=== PATIENT | female | born 1965 | race Caucasian/White ===

== ENCOUNTER 2020-01-12 06:29 | Inpatient (IN) | payer BC, OTHER ==
[~2020-01-12] VITALS: Ht 165.1 cm; Wt 96.9 kg
[2020-01-12] MEDS ORDERED: CEFTRIAXONE PMX 1GM/50ML 50 ML IV ONE (07:30)
[2020-01-12] MEDS ORDERED: AZITHROMYCIN 500 MG in SODIUM CHLORIDE 0.9% 250 ML IV ONE (07:30)
--- NOTE | 2020-01-12 07:34 | NUR ---
PT C/O MULTIPLE SYMTPOMS INCLUDING COUGH, FEVERS, N/V/D, MARQUES WITH RECENT EXPOSURE TO COVID. PT REPORTS CP WITH COUGHING AMD SORE RIBS FROM COUGHING. PT ON MONITOR. LAB AT BEDSIDE.
[2020-01-12] MEDS ORDERED: CEFTRIAXONE PMX 1GM/50ML 50 ML ONE (07:38)
[2020-01-12] MEDS ORDERED: ACETAMINOPHEN 500 MG TABLET ONE (07:38)
--- NOTE | 2020-01-12 07:51 | NUR ---
ANTIBIOTICS STARTED AFTER BLOOD CULTURES X 2 WERE DRAWN.
[2020-01-12 08:00] LABS: BASOPHILS % (AUTO) 0 % (0-1); EOSINOPHILS % (AUTO) 0 % (1-7); LYMPHOCYTES % (AUTO) 9 % (22-44); MEAN CORPUSCULAR HEMOGLOBIN 30.3 pg (27.0-34.8); MEAN CORPUSCULAR HGB CONC 34.5 g/dL (32.4-35.8); MEAN PLATELET VOLUME 8.6 fL (7.4-10.4); MONOCYTES % (AUTO) 4 % (2-9); NEUTROPHILS % (AUTO) 87 % (42-75); PLATELET COUNT 175 x10^3/uL (130-400); RED BLOOD COUNT 5.07 x10^6/uL (3.82-5.3); RED CELL DISTRIBUTION WIDTH 13.3 % (9.6-15.2)
[2020-01-12] MEDS ORDERED: ACETAMINOPHEN 500 MG TABLET PO/NG ONE (08:00)
[2020-01-12] MEDS ORDERED: ACETAMINOPHEN 325 MG TABLET PO/NG ONE (08:00)
[2020-01-12 08:06] LABS: ALANINE AMINOTRANSFERASE 25 U/L (12-78); ALBUMIN 2.9 g/dL (3.4-5.0); ANION GAP 7 mmol/L (5-15); CALCIUM 8.9 mg/dL (8.5-10.1); CHLORIDE 100 mmol/L (98-107); CREATININE 0.69 mg/dL (0.55-1.02)
[2020-01-12 08:08] LABS: ALKALINE PHOSPHATASE 55 U/L (45-117); BILIRUBIN,TOTAL 0.3 mg/dL (0.2-1.0); MD NO; TOTAL PROTEIN 7.9 g/dL (6.4-8.2)
--- NOTE | 2020-01-12 08:27 | NUR ---
PT PLACED ON 1 LITER OF OXYGEN NC AFTER PT WAS CONSISTENTLY AT 88% ON RA.
[2020-01-12] MEDS ORDERED: LISINOPRIL PO (08:29)
--- NOTE | 2020-01-12 09:01 | NUR ---
Report to Leila Shultz RN
--- NOTE | 2020-01-12 09:04 | NUR ---
REPORT FROM JAVIER, ASSUME CARE OF PT AT THIS TIME.
--- NOTE | 2020-01-12 09:17 | NUR ---
PT TO CTA
[2020-01-12] MEDS ORDERED: OMNIPAQUE 350 MG/ML, 100ML BOTTLE ONE (09:42)
--- NOTE | 2020-01-12 10:09 | NUR ---
CTA RESULTS BACK, PT TO BE ADMITTED TO HOSPITAL.
[2020-01-12] MEDS ORDERED: DEXAMETHASONE 4 MG/ML, 1ML IVPush ONE (10:30)
--- NOTE | 2020-01-12 10:40 | NUR ---
PT TO BE ADMITTED TO COVID MONITORED ROOM. HOSPITAL BED ORDERED.
--- NOTE | 2020-01-12 11:47 | NUR ---
PT MOVED ONTO HOSPITAL BED. PT C/O BEING HUNGRY, MEAL TRAY ORDERED.
--- NOTE | 2020-01-12 12:38 | NUR ---
MEAL TRAY PROVIDED, CALL LIGHT WITHIN REACH.
[2020-01-12] MEDS ORDERED: ENOXAPARIN 40 MG/0.4 ML SQ SCH (14:30)
[2020-01-12] MEDS ORDERED: ONDANSETRON ODT 4 MG PO PRN (14:30)
[2020-01-12] MEDS ORDERED: ONDANSETRON 2MG/ML, 2ML ONE (15:43)
[2020-01-12] MEDS ORDERED: ASCORBIC ACID 500 MG TABLET ONE (15:43)
[2020-01-12] MEDS ORDERED: ENOXAPARIN 40 MG/0.4 ML ONE (15:43)
[2020-01-12] MEDS: ONDANSETRON 2MG/ML, 2ML IVPush PRN (15:48)
[2020-01-12] MEDS: ASCORBIC ACID 500 MG TABLET PO SCH (15:48)
--- NOTE | 2020-01-12 16:00 | NUR ---
PT C/O NAUSEA, MEDICATED PER EMAR FOR NAUSEA. LAB IN TO DRAW.
--- NOTE | 2020-01-12 17:00 | NUR ---
MEAL TRAY PROVIDED, CALL LIGHT WITHIN REACH.
[2020-01-12] MEDS: SODIUM CHLORIDE 0.9% 1,000 ML IV SCH (17:05)
[2020-01-12] MEDS ORDERED: PROMETHAZINE 25MG TABLET ONE (17:09)
[2020-01-12] MEDS ORDERED: PROMETHAZINE 25MG TABLET PO PRN (18:00)
--- NOTE | 2020-01-12 18:00 | NUR ---
PT MOVED TO ROOM 36. VSS/UPDATED IN COMPUTER. BSC IN ROOM. PT C/O BURNING WITH URINATION AND FOUL ODOR. UA ORDER PLACED PER PROTOCOL, URINE COLLECTED/SENT TO LAB.
[2020-01-12 18:56] LABS: MICROSCOPIC INDICATED
--- NOTE | 2020-01-12 19:20 | NUR ---
REPORT TO TAVIA, TRANSFER OF CARE AT THIS TIME.
--- NOTE | 2020-01-12 19:24 | NUR ---
report from cosme hernandez
[2020-01-12] MEDS ORDERED: ACETAMINOPHEN 325 MG TABLET ONE (20:23)
[2020-01-12] MEDS: ACETAMINOPHEN 325 MG TABLET PO PRN (20:24)
--- NOTE | 2020-01-12 20:25 | NUR ---
PT WITH FEVER. MEDICATED WITH PRN TYLENOL
--- NOTE | 2020-01-12 21:13 | NUR ---
report to SHAUN batres
[2020-01-13 01:12] VITALS: BP 132/78
[2020-01-13] MEDS: SODIUM CHLORIDE 0.9% 1,000 ML IV SCH (05:27)
[2020-01-13] MEDS: ACETAMINOPHEN 325 MG TABLET PO PRN ×2 (05:27→17:49)
[2020-01-13 06:45] LABS: ALBUMIN 2.4 g/dL (3.4-5.0); ANION GAP 7 mmol/L (5-15); BASOPHILS % (AUTO) 0 % (0-1); CALCIUM 8.6 mg/dL (8.5-10.1); CHLORIDE 102 mmol/L (98-107); EOSINOPHILS % (AUTO) 0 % (1-7); LYMPHOCYTES % (AUTO) 17 % (22-44); MEAN CORPUSCULAR HEMOGLOBIN 30.2 pg (27.0-34.8); MEAN CORPUSCULAR HGB CONC 34.3 g/dL (32.4-35.8); MEAN PLATELET VOLUME 8.6 fL (7.4-10.4); MONOCYTES % (AUTO) 7 % (2-9); NEUTROPHILS % (AUTO) 76 % (42-75); PLATELET COUNT 169 x10^3/uL (130-400); RED BLOOD COUNT 4.56 x10^6/uL (3.82-5.3); RED CELL DISTRIBUTION WIDTH 13.4 % (9.6-15.2)
[2020-01-13 06:56] LABS: MD NO
[2020-01-13 06:57] LABS: ALANINE AMINOTRANSFERASE 27 U/L (12-78); ALKALINE PHOSPHATASE 54 U/L (45-117); BILIRUBIN,TOTAL 0.3 mg/dL (0.2-1.0); CREATININE 0.71 mg/dL (0.55-1.02); TOTAL PROTEIN 7.2 g/dL (6.4-8.2)
[2020-01-13 09:10] VITALS: BP 115/76
[2020-01-13] MEDS: DEXAMETHASONE 4 MG/ML, 1ML IVPush SCH (09:19)
[2020-01-13] MEDS: CHOLECALCIFEROL 5,000u TAB PO SCH (09:19)
[2020-01-13] MEDS: THIAMINE 100MG TABLET PO SCH (09:19)
[2020-01-13] MEDS: ZINC SULFATE 220 MG CAPSULE PO SCH (09:19)
[2020-01-13] MEDS: ASCORBIC ACID 500 MG TABLET PO SCH ×2 (09:19→17:24)
[2020-01-13] MEDS ORDERED: LEVO200T PO (09:51)
[2020-01-13] MEDS ORDERED: PROG100C10 PO (09:51)
[2020-01-13] MEDS ORDERED: LISI1TAB23 PO (09:51)
[2020-01-13] MEDS ORDERED: BUPR200T31 PO (09:51)
[2020-01-13] MEDS: CEFTRIAXONE PMX 1GM/50ML 50 ML IV SCH (10:07)
[2020-01-13] MEDS ORDERED: ESTR0.45 PO (10:13)
[2020-01-13] MEDS: AZITHROMYCIN 500 MG in SODIUM CHLORIDE 0.9% 250 ML IV SCH (10:52)
[2020-01-13] MEDS: ENOXAPARIN 100 MG/ML SQ SCH (12:30)
[2020-01-13] MEDS: LISINOPRIL 10 MG TABLET PO SCH (12:34)
[2020-01-13] MEDS: HYDROCHLOROTHIAZIDE 12.5 MG CAPSULE PO SCH (12:34)
[2020-01-13 13:50] VITALS: BP 112/59
[2020-01-13 19:32] VITALS: BP 134/74
[2020-01-14 00:47] VITALS: BP 120/72
[2020-01-14] MEDS: ACETAMINOPHEN 325 MG TABLET PO PRN ×3 (00:59→15:59)
[2020-01-14] MEDS: ENOXAPARIN 100 MG/ML SQ SCH ×2 (01:01→11:35)
[2020-01-14] MEDS ORDERED: LEVOTHYROXINE 100 MCG TABLET ONE (05:45)
[2020-01-14] MEDS: LEVOTHYROXINE 200 MCG TABLET PO SCH (05:50)
[2020-01-14 07:02] VITALS: BP 121/68
[2020-01-14] MEDS: ASCORBIC ACID 500 MG TABLET PO SCH ×2 (09:13→15:59)
[2020-01-14] MEDS: ZINC SULFATE 220 MG CAPSULE PO SCH (09:13)
[2020-01-14] MEDS: DEXAMETHASONE 4 MG/ML, 1ML IVPush SCH (09:13)
[2020-01-14] MEDS: AZITHROMYCIN 500 MG in SODIUM CHLORIDE 0.9% 250 ML IV SCH (09:13)
[2020-01-14] MEDS: THIAMINE 100MG TABLET PO SCH (09:13)
[2020-01-14] MEDS: CHOLECALCIFEROL 5,000u TAB PO SCH (09:13)
[2020-01-14] MEDS: LISINOPRIL 10 MG TABLET PO SCH (09:13)
[2020-01-14] MEDS: CEFTRIAXONE PMX 1GM/50ML 50 ML IV SCH (09:14)
[2020-01-14] MEDS: HYDROCHLOROTHIAZIDE 12.5 MG CAPSULE PO SCH (09:15)
[2020-01-14] MEDS: ONDANSETRON 2MG/ML, 2ML IVPush PRN (17:24)
[2020-01-14] MEDS ORDERED: OXYcodone 5 MG/5 ML ORAL.SOL UDC PO ONE (17:30)
[2020-01-14 21:16] VITALS: BP 125/73
[2020-01-15 00:42] VITALS: BP 120/82
[2020-01-15] MEDS: LEVOTHYROXINE 200 MCG TABLET PO SCH (06:05)
[2020-01-15] MEDS: ACETAMINOPHEN 325 MG TABLET PO PRN ×2 (06:07→13:22)
[2020-01-15 07:41] VITALS: BP 134/80
[2020-01-15 08:01] LABS: BASOPHILS % (AUTO) 0 % (0-1); EOSINOPHILS % (AUTO) 0 % (1-7); LYMPHOCYTES % (AUTO) 40 % (22-44); MEAN CORPUSCULAR HEMOGLOBIN 29.7 pg (27.0-34.8); MEAN CORPUSCULAR HGB CONC 33.7 g/dL (32.4-35.8); MEAN PLATELET VOLUME 8.1 fL (7.4-10.4); MONOCYTES % (AUTO) 13 % (2-9); NEUTROPHILS % (AUTO) 47 % (42-75); PLATELET COUNT 223 x10^3/uL (130-400); RED BLOOD COUNT 4.45 x10^6/uL (3.82-5.3); RED CELL DISTRIBUTION WIDTH 13.5 % (9.6-15.2)
[2020-01-15 08:04] LABS: MD NO
[2020-01-15 08:09] LABS: ALBUMIN 2.3 g/dL (3.4-5.0); ANION GAP 6 mmol/L (5-15); CALCIUM 8.8 mg/dL (8.5-10.1); CHLORIDE 104 mmol/L (98-107)
[2020-01-15 08:13] LABS: ALANINE AMINOTRANSFERASE 261 U/L (12-78); ALKALINE PHOSPHATASE 125 U/L (45-117); BILIRUBIN,TOTAL 0.2 mg/dL (0.2-1.0); CREATININE 0.77 mg/dL (0.55-1.02); TOTAL PROTEIN 7.2 g/dL (6.4-8.2)
[2020-01-15] MEDS ORDERED: ENOXAPARIN 60 MG/0.6 ML SQ SCH (09:00)
[2020-01-15] MEDS: ZINC SULFATE 220 MG CAPSULE PO SCH (09:22)
[2020-01-15] MEDS: CHOLECALCIFEROL 5,000u TAB PO SCH (09:22)
[2020-01-15] MEDS: ASCORBIC ACID 500 MG TABLET PO SCH ×2 (09:22→17:23)
[2020-01-15] MEDS: HYDROCHLOROTHIAZIDE 12.5 MG CAPSULE PO SCH (09:22)
[2020-01-15] MEDS: LISINOPRIL 10 MG TABLET PO SCH (09:22)
[2020-01-15] MEDS: CEFTRIAXONE PMX 1GM/50ML 50 ML IV SCH (09:22)
[2020-01-15] MEDS: THIAMINE 100MG TABLET PO SCH (09:24)
[2020-01-15] MEDS: AZITHROMYCIN 500 MG in SODIUM CHLORIDE 0.9% 250 ML IV SCH (10:23)
[2020-01-15] MEDS ORDERED: CEFD300C37 PO (11:59)
[2020-01-15] MEDS ORDERED: CHOL500045 PO (11:59)
[2020-01-15] MEDS ORDERED: ZINC220C7 PO (11:59)
[2020-01-15] MEDS ORDERED: ASCO500T9 PO (11:59)
[2020-01-15] MEDS ORDERED: THIA100T67 PO (11:59)
[2020-01-15] MEDS ORDERED: AZIT250T PO (11:59)
[2020-01-15] MEDS ORDERED: BENZ100C PO (13:45)
[2020-01-15] MEDS ORDERED: GUAI5SYR PO (13:47)
[2020-01-15 14:16] VITALS: BP 114/75
== END 2020-01-15 18:05 | disposition home or self-care (01) | DRG 193 ==
LOC: ED 08:12 → EDIP 10:07 → 4EST 23:04
PROVIDERS: ADMIT Family Medicine; ATTEND Family Medicine
DX: J12.9 Viral pneumonia, unspecified (principal); J96.01 Acute respiratory failure with hypoxia; Z20.828 Contact with and (suspected) exposure to other viral communicable diseases; E03.9 Hypothyroidism, unspecified; F32.9 Major depressive disorder, single episode, unspecified; H66.91 Otitis media, unspecified, right ear; I10 Essential (primary) hypertension; Z87.891 Personal history of nicotine dependence
CPT/HCPCS: 36415; 84145; 96365; 96366; 96372; 96375; 99285; Q0169; 71045; 71275; 80053; 81001; 83605; 83615; 83735; 84100; 84443; 85025; 85379; 85384; 86140; 87040; 87086; 93005; G0378; J0456; J0696; J1100; J1650; J2405; Q9967; J7030; J7050; U0003